=== PATIENT | female | born 1985 | race Caucasian/White ===

== ENCOUNTER → 2020-05-22 07:48 | Outpatient (CLI) | payer OTHER, SELFPAY ==
[2020-05-22 08:13] LABS: COVID19 -Nasal RAPID Negative (Negative)
== END ==
PROVIDERS: Visit Provider Nurse Practitioner Family
DX: Z20.822 Contact with and (suspected) exposure to COVID-19 (principal); J02.9 Acute pharyngitis, unspecified
CPT/HCPCS: 87070; 87635

== ENCOUNTER → 2021-12-10 14:41 | Outpatient (CLI) | payer SELFPAY | PROVIDERS: Visit Provider Student in an Organized Health Care Education/Training Program | DX: J02.9 Acute pharyngitis, unspecified (principal) | CPT/HCPCS: 87070; 87077; 87147; 87186 ==